=== PATIENT | male | born 1995 | race Caucasian/White ===

== ENCOUNTER 2016-12-19 20:52 | Emergency (ER) | payer OTHER ==
[~2016-12-19] VITALS: Ht 165.1 cm; Wt 70.0 kg
[2016-12-19 21:07] VITALS: BP 153/90; PULSE 107; PULSE 95; RESP 16; RESP 18; TEMP 98.1; O2SAT 100; O2SAT 95
[2016-12-19 22:54] LABS: AUTOMATED NEUTROPHIL # 4.5 TH/MM3 (1.8-7.7); BASOPHIL % 0.7 % (0.0-2.0); EOSINOPHIL # 0.1 TH/MM3 (0-0.4); EOSINOPHIL % 1.3 % (0.0-4.0); HEMATOCRIT 43.2 % (39.0-51.0); HEMO FLAGS DIFF FINAL; LYMPH % 27.3 % (9.0-44.0); MEAN CELL VOLUME 92.2 FL (80.0-100.0); MEAN CORPUSCULAR HEMOGLOBIN 31.4 PG (27.0-34.0); MEAN CORPUSCULAR HGB CONC 34.1 % (32.0-36.0); MONO % 8.6 % (0.0-8.0); NEUT % 62.1 % (16.0-70.0); PLATELET COUNT 232 TH/MM3 (150-450); RED BLOOD COUNT 4.69 MIL/MM3 (4.50-5.90); RED CELL DISTRIBUTION WIDTH 12.4 % (11.6-17.2); WHITE BLOOD COUNT 7.2 TH/MM3 (4.0-11.0)
[2016-12-19 23:19] LABS: ANION GAP 9 MEQ/L (5-15); AST (GOT) 13 U/L (15-37); BICARBONATE 26.7 MEQ/L (21.0-32.0); BLOOD UREA NITROGEN 14 MG/DL (7-18); CHLORIDE 102 MEQ/L (98-107); GLOMERULAR FILTRATION RATE 85 ML/MIN (>89); POTASSIUM 3.8 MEQ/L (3.5-5.1); SODIUM (NA) 138 MEQ/L (136-145)
[2016-12-19 23:25] LABS: ALKALINE PHOSPHATASE 69 U/L (45-117); ALT (GPT) 16 U/L (12-78); TOTAL BILIRUBIN ADULT 0.3 MG/DL (0.2-1.0)
[2016-12-19 23:26] LABS: ACETAMINOPHEN LESS THAN 2.0 MCG/ML (10.0-30.0); ALCOHOL LESS THAN 3 MG/DL (0-5)
--- NOTE | 2016-12-19 23:34 | PD ---
HPI Chief Complaint: Psychiatric Symptoms Time Seen by Provider: 21:12 Travel History International Travel<30 days: No Contact w/Intl Traveler<30days: No Traveled to known affect area: No History of Present Illness HPI Patient is a 21 year old male who comes in because he says he is feeling suicidal. He says he has been depressed for 3 years, but it is getting much worse and he just can't take it anymore. He says he did attempt to hurt himself when he was younger, but has not done anything to hurt himself tonight. He denies any medical complaints at this time. PFSH Past Medical History Bipolar Disorder: Yes Anxiety: Yes Depression: Yes Tetanus Vaccination: < 5 Years Influenza Vaccination: No Past Surgical History Surgical History: No Previous Surgery Social History Alcohol Use: Yes Tobacco Use: No Substance Use: Yes (WEED) Allergies-Medications (Allergen,Severity, Reaction): Coded Allergies: No Known Allergies (Verified Allergy, Unknown, 12/19/16) Reported Meds & Prescriptions Reported Meds & Active Scripts Active No Active Prescriptions or Reported Medications Review of Systems Except as stated in HPI: all other systems reviewed are Neg General / Constitutional: No: Fever, Chills HENT: No: Headaches, Lightheadedness Cardiovascular: No: Chest Pain or Discomfort Respiratory: No: Shortness of Breath Gastrointestinal: No: Nausea, Vomiting, Abdominal Pain Skin: No Rash, No Change in Pigmentation Neurologic: No: Weakness, Dizziness Psychiatric: Positive: Depression, Suicidal Ideations Physical Exam Narrative GENERAL: Awake and alert, in no acute distress. SKIN: Focused skin assessment warm/dry. HEAD: Atraumatic. Normocephalic. EYES: Pupils equal and round. No scleral icterus. ENT: Mucous membranes pink and moist. NECK: Trachea midline. No JVD. CARDIOVASCULAR: Regular rate and rhythm. No murmur appreciated. RESPIRATORY: No accessory muscle use. Clear to auscultation. Breath sounds equal bilaterally. GASTROINTESTINAL: Abdomen soft, non-tender, nondistended. MUSCULOSKELETAL: No obvious deformities. No clubbing. No cyanosis. No edema. NEUROLOGICAL: Awake and alert. No obvious cranial nerve deficits. Motor grossly within normal limits. Normal speech. PSYCHIATRIC: Appropriate mood and affect; insight and judgment normal. Data Data Last Documented VS Vital Signs Date Time Temp Pulse Resp B/P (MAP) Pulse Ox O2 Delivery O2 Flow Rate FiO2 12/19/16 21:13 18 12/19/16 21:07 107 153/90 (111) 95 Room Air 12/19/16 21:07 98.1 Orders Orders Complete Blood Count With Diff (12/19/16 21:25) Comprehensive Metabolic Panel (12/19/16 21:25) Psych Screen (12/19/16 21:25) Drug Screen, Random Urine (12/19/16:25) Alcohol (Ethanol) (12/19/16 21:25) Salicylates (Aspirin) (12/19/16 21:25) Tylenol (Acetaminophen) (12/19/16 21:25) Labs Laboratory Tests Test 12/19/16 22:01 White Blood Count 7.2 TH/MM3 Red Blood Count 4.69 MIL/MM3 Hemoglobin 14.7 GM/DL Hematocrit 43.2 % Mean Corpuscular Volume 92.2 FL Mean Corpuscular Hemoglobin 31.4 PG Mean Corpuscular Hemoglobin Concent 34.1 % Red Cell Distribution Width 12.4 % Platelet Count 232 TH/MM3 Mean Platelet Volume 8.9 FL Neutrophils (%) (Auto) 62.1 % Lymphocytes (%) (Auto) 27.3 % Monocytes (%) (Auto) 8.6 % Eosinophils (%) (Auto) 1.3 % Basophils (%) (Auto) 0.7 % Neutrophils # (Auto) 4.5 TH/MM3 Lymphocytes # (Auto) 2.0 TH/MM3 Monocytes # (Auto) 0.6 TH/MM3 Eosinophils # (Auto) 0.1 TH/MM3 Basophils # (Auto) 0.0 TH/MM3 CBC Comment DIFF FINAL Differential Comment Blood Urea Nitrogen 14 MG/DL Creatinine 1.09 MG/DL Random Glucose 102 MG/DL Total Protein 7.6 GM/DL Albumin 4.2 GM/DL Calcium Level 8.8 MG/DL Alkaline Phosphatase 69 U/L Aspartate Amino Transf (AST/SGOT) 13 U/L Alanine Aminotransferase (ALT/SGPT) 16 U/L Total Bilirubin 0.3 MG/DL Sodium Level 138 MEQ/L Potassium Level 3.8 MEQ/L Chloride Level 102 MEQ/L Carbon Dioxide Level 26.7 MEQ/L Anion Gap 9 MEQ/L Estimat Glomerular Filtration Rate 85 ML/MIN Salicylates Level 2.8 MG/DL Acetaminophen Level LESS THAN 2.0 MCG/ML Ethyl Alcohol Level LESS THAN 3 MG/DL MDM Medical Decision Making Medical Screen Exam Complete: Yes Emergency Medical Condition: Yes Differential Diagnosis psychosis vs depression vs suicidal ideation vs intoxication Narrative Course Patient is a 21-year-old male who comes in because he is feeling suicidal. He has no medical complaints at this time. Exam shows no acute abnormalities. Labs sent show no acute abnormalities. Patient will be medically cleared for psychiatric evaluation. He is under Skelton act from [facility]. Diagnosis Primary Impression: Medical clearance for psychiatric admission Scripts No Active Prescriptions or Reported Meds Condition: Maddison Martinez MD Dec 19, 2016 23:34
[2016-12-20 01:20] VITALS: BP 113/55; PULSE 52; RESP 18; TEMP 98.1; O2SAT 97
[2016-12-20 07:25] VITALS: BP 125/60; PULSE 79; RESP 17; TEMP 97.9; O2SAT 98
[2016-12-20 09:10] VITALS: BP 125/70; PULSE 67; RESP 16; O2SAT 98
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
[2016-12-20 18:21] VITALS: BP 118/72; PULSE 74; RESP 18; O2SAT 99
[2016-12-20 22:02] VITALS: BP 115/64; PULSE 73; RESP 18; O2SAT 98
[2016-12-21 02:12] VITALS: BP 106/58; PULSE 69; RESP 18; O2SAT 99
[2016-12-21 06:12] VITALS: BP 112/59; PULSE 53; RESP 17; O2SAT 96
[2016-12-21 15:01] VITALS: BP 143/69; PULSE 64; RESP 18; O2SAT 99
[2016-12-21 15:40] VITALS: BP 143/69
== END 2016-12-21 16:00 ==
LOC: NEPD 20:52 → NEPJ 12-21 16:00
DX: F43.20 Adjustment disorder, unspecified (principal); R44.3 Hallucinations, unspecified; F31.9 Bipolar disorder, unspecified; F41.9 Anxiety disorder, unspecified
CPT/HCPCS: 80053; 80307; 85025; 99285

== ENCOUNTER 2016-12-30 16:51 | Emergency (ER) | payer SELFPAY ==
[~2016-12-30] VITALS: Ht 167.6 cm; Wt 68.0 kg
[2016-12-30] MEDS ORDERED: FLUO-1 PO (18:01)
[2016-12-30] MEDS ORDERED: SODIUM CHLOR 0.9% 1000 ML INJ 1,000 ML IV SCH (18:01)
[2016-12-30] MEDS ORDERED: VIST25CA PO (18:01)
[2016-12-30] MEDS ORDERED: TRAM50TA PO (18:01)
[2016-12-30 18:08] VITALS: O2SAT 98
[2016-12-30] MEDS ORDERED: SODIUM CHLORIDE 0.9% FLUSH 10 ML FLUSH IV FLUSH PRN (18:15)
[2016-12-30] MEDS ORDERED: LIDOCAINE VISCOUS 2% SOLN 15 ML UDC PO ONE (18:15)
[2016-12-30] MEDS ORDERED: ONDANSETRON HCL 4 MG/2 ML VIAL IVP ONE (18:15)
[2016-12-30] MEDS ORDERED: FAMOTIDINE 20 MG/2 ML VIAL IV PUSH ONE (18:15)
[2016-12-30] MEDS ORDERED: ALUMINUM/MAGNESIUM/SIMETH 30 ML CUP PO ONE (18:15)
[2016-12-30 18:22] VITALS: BP 135/70; PULSE 72; RESP 18; O2SAT 99
--- NOTE | 2016-12-30 18:32 | PD ---
HPI Chief Complaint: Abdominal Pain Time Seen by Provider: 17:55 Travel History International Travel<30 days: No Contact w/Intl Traveler<30days: No Traveled to known affect area: No History of Present Illness HPI Patient is a 21 year old male who comes in complaining of epigastric abdominal pain. He says that he has had the pain for a few months, but it got worse last night. He admits to one episode of vomiting. He says he did have some alcohol last night. He denies radiation of the pain. He says that the sharp pain that comes on for 15 seconds at a time. He says he is moving his bowels normally. He does not think pain is related to food. He denies fever or chills. He has not taken anything for the pain. PFSH Past Medical History Bipolar Disorder: Yes Anxiety: Yes Depression: Yes Tetanus Vaccination: Unknown Past Surgical History Surgical History: No Previous Surgery Social History Alcohol Use: Yes (RARELY) Tobacco Use: Yes (1/2 PPD) Substance Use: Yes (BENZOS,MDMA) Allergies-Medications (Allergen,Severity, Reaction): Coded Allergies: No Known Allergies (Verified Allergy, Unknown, 12/30/16) Reported Meds & Prescriptions Reported Meds & Active Scripts Active Reported Vistaril (Hydroxyzine Pamoate) 25 Mg Cap 25 Mg PO TID PRN Tramadol (Tramadol HCl) 50 Mg Tab 100 Mg PO Q6H PRN Prozac (Fluoxetine HCl) 10 Mg Cap 10 Mg PO DAILY Review of Systems Except as stated in HPI: all other systems reviewed are Neg General / Constitutional: No: Fever, Chills HENT: No: Headaches, Lightheadedness Cardiovascular: No: Chest Pain or Discomfort Respiratory: No: Shortness of Breath Gastrointestinal: Positive: Vomiting, Abdominal Pain, No: Diarrhea Genitourinary: No: Dysuria Musculoskeletal: No: Edema, Pain Skin: No Rash, No Change in Pigmentation Neurologic: No: Weakness, Dizziness Physical Exam Narrative GENERAL: Awake and alert, in no acute distress. SKIN: Focused skin assessment warm/dry. HEAD: Atraumatic. Normocephalic. EYES: Pupils equal and round. No scleral icterus. ENT: Mucous membranes pink and moist. NECK: Trachea midline. No JVD. CARDIOVASCULAR: Regular rate and rhythm. No murmur appreciated. RESPIRATORY: No accessory muscle use. Clear to auscultation. Breath sounds equal bilaterally. GASTROINTESTINAL: Abdomen soft, nondistended. Mild tenderness to palpation of the right upper quadrant. No rebound or guarding. MUSCULOSKELETAL: No obvious deformities. No clubbing. No cyanosis. No edema. NEUROLOGICAL: Awake and alert. No obvious cranial nerve deficits. Motor grossly within normal limits. Normal speech. PSYCHIATRIC: Appropriate mood and affect; insight and judgment normal. Data Data Last Documented VS Vital Signs Date Time Temp Pulse Resp B/P (MAP) Pulse Ox O2 Delivery O2 Flow Rate FiO2 12/30/16 18:22 72 18 135/70 (91) 99 Room Air Orders Orders Basic Metabolic Panel (Bmp) (12/30/16 18:) Complete Blood Count With Diff (12/30/16:) Lipase (12/30/16:) Iv Access Insert/Monitor (12/30/16 18:) Ecg Monitoring (12/30/16 18:) Oximetry (12/30/16 18:) Ondansetron Inj (Zofran Inj) (12/30/16 18:) Sodium Chlor 0.9% 1000 Ml Inj (Ns 1000 M (12/30/16 18:) Sodium Chloride 0.9% Flush (Ns Flush) (12/30/16 18:) Famotidine Inj (Pepcid Inj) (12/30/16 18:15) Al-Mag Hy-Si 40-40-4 Mg/Ml Liq (Mag-Al P (12/30/16 18:15) Lidocaine 2% Viscous (Xylocaine 2% Visco (12/30/16 18:) Hepatic Functional Panel (12/30/16 18:) MDM Medical Decision Making Medical Screen Exam Complete: Yes Emergency Medical Condition: Yes Medical Record Reviewed: Yes Differential Diagnosis Gastritis versus cholecystitis versus cholelithiasis versus GERD versus pancreatitis Narrative Course Patient is a 21-year-old male who comes in complaining of abdominal pain. Exam shows minimal right-sided abdominal tenderness. IV established, labs sent. Given famotidine, lidocaine, Maalox. Given IV fluids and Zofran. Patient signed out to Dr. Wang to follow-up labs and disposition the patient. Maddison Pickett MD Dec 30, 2016 18:32
[2016-12-30 19:28] VITALS: BP 131/70; PULSE 77; RESP 18; O2SAT 100
[2016-12-30 19:35] LABS: BICARBONATE 23.3 MEQ/L (21.0-32.0); POTASSIUM 3.6 MEQ/L (3.5-5.1)
[2016-12-30 19:39] LABS: INDIRECT BILIRUBIN 0.5 MG/DL (0.0-0.8); TOTAL BILIRUBIN ADULT 0.6 MG/DL (0.2-1.0)
[2016-12-30 20:30] LABS: AUTOMATED NEUTROPHIL # 3.8 TH/MM3 (1.8-7.7); BASOPHIL % 0.3 % (0.0-2.0); EOSINOPHIL % 0.4 % (0.0-4.0); HEMATOCRIT 38.7 % (39.0-51.0); HEMO FLAGS DIFF FINAL; LYMPH % 34.5 % (9.0-44.0); LYMPHOCYTE # 2.3 TH/MM3 (1.0-4.8); MEAN CELL VOLUME 91.5 FL (80.0-100.0); MEAN CORPUSCULAR HGB CONC 33.9 % (32.0-36.0); MONO % 7.6 % (0.0-8.0); NEUT % 57.2 % (16.0-70.0); PLATELET COUNT 220 TH/MM3 (150-450); RED BLOOD COUNT 4.23 MIL/MM3 (4.50-5.90); RED CELL DISTRIBUTION WIDTH 12.5 % (11.6-17.2); WHITE BLOOD COUNT 6.7 TH/MM3 (4.0-11.0)
--- NOTE | 2016-12-30 20:41 | PD ---
Physical Exam Narrative GENERAL: Well-nourished, well-developed patient. well appearing SKIN: Warm and dry. HEAD: Normocephalic and atraumatic. EYES: No injection or drainage. ENT: No nasal drainage noted. NECK: Supple, trachea midline. CARDIOVASCULAR: Regular rate and rhythm RESPIRATORY: Breath sounds equal bilaterally. No accessory muscle use. GASTROINTESTINAL: Abdomen soft, mild ttp in epigastric area, nondistended. no rebound EXTREMITIES: No edema. NEUROLOGICAL: Awake and alert. Motor and sensory grossly within normal limits. Normal speech. Data Data Last Documented VS Vital Signs Date Time Temp Pulse Resp B/P (MAP) Pulse Ox O2 Delivery O2 Flow Rate FiO2 12/30/16 19:28 77 18 131/70 (90) 100 Room Air Orders Orders Basic Metabolic Panel (Bmp) (12/30/16 18:) Complete Blood Count With Diff (12/30/16 18:) Lipase (12/30/16 18:) Iv Access Insert/Monitor (12/30/16 18:) Ecg Monitoring (12/30/16 18:) Oximetry (12/30/16 18:) Ondansetron Inj (Zofran Inj) (12/30/16 18:15) Sodium Chlor 0.9% 1000 Ml Inj (Ns 1000 M (12/30/16 18:) Sodium Chloride 0.9% Flush (Ns Flush) (12/30/16 18:15) Famotidine Inj (Pepcid Inj) (12/30/16 18:15) Al-Mag Hy-Si 40-40-4 Mg/Ml Liq (Mag-Al P (12/30/16 18:15) Lidocaine 2% Viscous (Xylocaine 2% Visco (12/30/16 18:15) Hepatic Functional Panel (12/30/16 18:01) Ed Discharge Order (12/30/16 20:38) Labs Laboratory Tests Test 12/30/16 18:12 12/30/16 20:15 Blood Urea Nitrogen 14 MG/DL Creatinine 0.86 MG/DL Random Glucose 75 MG/DL Total Protein 7.3 GM/DL Albumin 4.3 GM/DL Calcium Level 9.3 MG/DL Alkaline Phosphatase 60 U/L Aspartate Amino Transf (AST/SGOT) 21 U/L Alanine Aminotransferase (ALT/SGPT) 19 U/L Total Bilirubin 0.6 MG/DL Direct Bilirubin 0.1 MG/DL Sodium Level 137 MEQ/L Potassium Level 3.6 MEQ/L Chloride Level 102 MEQ/L Carbon Dioxide Level 23.3 MEQ/L Anion Gap 12 MEQ/L Estimat Glomerular Filtration Rate 112 ML/MIN Indirect Bilirubin 0.5 MG/DL Lipase 80 U/L White Blood Count 6.7 TH/MM3 Red Blood Count 4.23 MIL/MM3 Hemoglobin 13.1 GM/DL Hematocrit 38.7 % Mean Corpuscular Volume 91.5 FL Mean Corpuscular Hemoglobin 31.0 PG Mean Corpuscular Hemoglobin Concent 33.9 % Red Cell Distribution Width 12.5 % Platelet Count 220 TH/MM3 Mean Platelet Volume 8.7 FL Neutrophils (%) (Auto) 57.2 % Lymphocytes (%) (Auto) 34.5 % Monocytes (%) (Auto) 7.6 % Eosinophils (%) (Auto) 0.4 % Basophils (%) (Auto) 0.3 % Neutrophils # (Auto) 3.8 TH/MM3 Lymphocytes # (Auto) 2.3 TH/MM3 Monocytes # (Auto) 0.5 TH/MM3 Eosinophils # (Auto) 0.0 TH/MM3 Basophils # (Auto) 0.0 TH/MM3 CBC Comment DIFF FINAL Differential Comment MDM Supervised Visit with DIANA: No Interpretation(s) CBC & BMP Diagram 12/30/16 18:12 Total Protein 7.3, Albumin 4.3, Calcium Level 9.3, Alkaline Phosphatase 60, Aspartate Amino Transf (AST/SGOT) 21, Alanine Aminotransferase (ALT/SGPT) 19, Total Bilirubin 0.6, Direct Bilirubin 0.1 12/30/16 20:15 Narrative Course signed over to me to follow labs and if normal to discharge labs wnl, Patient denies any new complaints and states that they are feeling better. Patient happy with care, all questions answered. Patient knows that follow up is incumbent on them and to return to the emergency room immediately if new or worsening symptoms develop. Patient given strict return precautions, vitals reviewed and are normal, agrees to further workup as an outpatient. Diagnosis Primary Impression: Abdominal pain Qualified Codes: R10.13 - Epigastric pain Patient Instructions: General Instructions Additional Instruction: return as needed, tylenol as needed, set up a primary for follow up this week Med/Other Pt SpecificInfo: No Change to Meds Disposition: 01 DISCHARGE HOME Condition: Stable Dottie Wang MD Dec 30, 2016 20:41
--- NOTE | 2016-12-31 07:59 | EKG ---
Date Performed: 12/30/2016 Time Performed: 20:10:18 PTAGE: 21 years EKG: Sinus rhythm PROBABLE EARLY REPOLARIZATION BORDERLINE ECG NO PREVIOUS TRACING DOCTOR: Gerry Jarrett Interpretating Date/Time 12/31/2016 07:57:36
== END 2016-12-30 21:07 | disposition home or self-care (01) ==
LOC: NEPC 16:51
DX: R10.13 Epigastric pain (principal); F31.9 Bipolar disorder, unspecified; F41.9 Anxiety disorder, unspecified; F17.200 Nicotine dependence, unspecified, uncomplicated; Z79.899 Other long term (current) drug therapy
CPT/HCPCS: 80048; 80076; 83690; 85025; 93005; 96374; 96375; 99284; J2405; J7030

== ENCOUNTER 2016-12-31 07:39 | Inpatient (IN) | payer SELFPAY ==
[~2016-12-31] VITALS: Ht 167.6 cm; Wt 67.3 kg
[~2016-12-31 07:39] MED LIST: FLUO-1 PO; TRAM50TA PO; VIST25CA PO
[2016-12-31 07:50] VITALS: BP 123/68; PULSE 81; RESP 20; TEMP 98.8; O2SAT 98
--- NOTE | 2016-12-31 07:58 | PD ---
HPI Chief Complaint: suicidal under [place] act Time Seen by Provider: 07:52 Travel History International Travel<30 days: No Contact w/Intl Traveler<30days: No Traveled to known affect area: No History of Present Illness HPI This is a 21-year-old male with a history of depression, who presents here with complaints of suicidal ideation. The patient was brought in by the police under a [place] act. According to the police and patient he has tramadol and was given a take all of them and go into the river and drown himself. The patient states that he's been off of his psychiatric medicines which include Vistaril and Prozac for 2 days. He states he has a baseline history of depression. He states he's been suicidal previously. He denies any drugs of abuse at this time or alcohol ingestion in the last 24 hours. The patient has no medical history other than the depression. There are no other complaints at the time of my examination. PFSH Past Medical History Bipolar Disorder: Yes Anxiety: Yes Depression: Yes Social History Alcohol Use: Yes (RARELY) Tobacco Use: Yes (1/2 PPD) Substance Use: Yes (BENZOS,MDMA) Allergies-Medications (Allergen,Severity, Reaction): Coded Allergies: No Known Allergies (Verified Allergy, Unknown, 12/31/16) Reported Meds & Prescriptions Reported Meds & Active Scripts Active Reported Tramadol (Tramadol HCl) 50 Mg Tab 100 Mg PO Q6H PRN Review of Systems Except as stated in HPI: all other systems reviewed are Neg General / Constitutional: No: Fever, Chills HENT: No: Headaches, Neck Pain Cardiovascular: No: Chest Pain or Discomfort, Palpitations Respiratory: No: Cough, Shortness of Breath Gastrointestinal: No: Nausea, Vomiting, Abdominal Pain Musculoskeletal: No: Weakness, Pain Skin: No Rash, No Lesions Neurologic: No: Weakness, Dizziness, Headache Psychiatric: Positive: Depression, Suicidal Ideations, Substance Abuse ( reports occasional marijuana use) Physical Exam Narrative GENERAL: Well-developed well-nourished male in no acute respiratory distress. The patient is cooperative. SKIN: Focused skin assessment warm/dry. HEAD: Atraumatic. Normocephalic. EYES: Pupils equal and round. No scleral icterus. No injection or drainage. ENT: No nasal bleeding or discharge. Mucous membranes pink and moist. NECK: Trachea midline. Supple CARDIOVASCULAR: Regular rate and rhythm. No murmur appreciated. RESPIRATORY: No accessory muscle use. Clear to auscultation. Breath sounds equal bilaterally. GASTROINTESTINAL: Abdomen soft, non-tender, nondistended. Hepatic and splenic margins not palpable. MUSCULOSKELETAL: No obvious deformities. No clubbing. No cyanosis. No edema. NEUROLOGICAL: Awake and alert. No obvious cranial nerve deficits. Motor grossly within normal limits. Normal speech. PSYCHIATRIC: Cooperative with flat affect. Data Data Last Documented VS Vital Signs Date Time Temp Pulse Resp B/P (MAP) Pulse Ox O2 Delivery O2 Flow Rate FiO2 12/31/16 07:50 98.8 81 20 123/68 (86) 98 Orders Orders Complete Blood Count With Diff (12/31/16 07:52) Comprehensive Metabolic Panel (12/31/16 07:52) Psych Screen (12/31/16 07:52) Drug Screen, Random Urine (12/31/16 07:52) Alcohol (Ethanol) (12/31/16 07:52) Salicylates (Aspirin) (12/31/16 07:52) Tylenol (Acetaminophen) (12/31/16 07:52) Admit To Inpatient Psych (12/31/16 ) Vital Signs (Adult) TITA.Q12H.E (12/31/16:17) Activity Oob Ad [place] (12/31/16:17) Lorazepam (Ativan) (12/31/16 09:30) Lorazepam Inj (Ativan Inj) (12/31/16 09:30) Lorazepam (Ativan) (12/31/16 09:30) Lorazepam Inj (Ativan Inj) (12/31/16 09:30) Acetaminophen (Tylenol) (12/31/16 09:30) Magnesium Hydroxide Liq (Milk Of Magnesi (12/31/16 09:30) Al-Mag Hy-Si 40-40-4 Mg/Ml Liq (Mag-Al P (12/31/16 09:30) Nicotine 21 Mg Patch.24 Hr (Habitrol 21 (12/31/16 09:30) Basic Metabolic Panel (Bmp) (01/01/17 06:00) Lipid Profile (01/01/17 06:00) Hemoglobin (Hgb) A1c (01/01/17 06:00) Alcohol (Ethanol) (12/31/16 09:17) ^ Other Nursing Orders (12/31/16 09:19) Labs Laboratory Tests Test 12/31/16 08:00 White Blood Count 6.3 TH/MM3 Red Blood Count 4.40 MIL/MM3 Hemoglobin 13.7 GM/DL Hematocrit 40.3 % Mean Corpuscular Volume 91.5 FL Mean Corpuscular Hemoglobin 31.2 PG Mean Corpuscular Hemoglobin Concent 34.1 % Red Cell Distribution Width 12.4 % Platelet Count 245 TH/MM3 Mean Platelet Volume 8.8 FL Neutrophils (%) (Auto) 56.7 % Lymphocytes (%) (Auto) 31.8 % Monocytes (%) (Auto) 9.9 % Eosinophils (%) (Auto) 0.7 % Basophils (%) (Auto) 0.9 % Neutrophils # (Auto) 3.6 TH/MM3 Lymphocytes # (Auto) 2.0 TH/MM3 Monocytes # (Auto) 0.6 TH/MM3 Eosinophils # (Auto) 0.0 TH/MM3 Basophils # (Auto) 0.1 TH/MM3 CBC Comment DIFF FINAL Differential Comment Blood Urea Nitrogen 16 MG/DL Creatinine 0.95 MG/DL Random Glucose 105 MG/DL Total Protein 7.1 GM/DL Albumin 4.1 GM/DL Calcium Level 8.8 MG/DL Alkaline Phosphatase 58 U/L Aspartate Amino Transf (AST/SGOT) 19 U/L Alanine Aminotransferase (ALT/SGPT) 20 U/L Total Bilirubin 0.2 MG/DL Sodium Level 138 MEQ/L Potassium Level 4.0 MEQ/L Chloride Level 107 MEQ/L Carbon Dioxide Level 24.9 MEQ/L Anion Gap 6 MEQ/L Estimat Glomerular Filtration Rate 100 ML/MIN Salicylates Level LESS THAN 1.7 MG/DL Acetaminophen Level LESS THAN 2.0 MCG/ML Ethyl Alcohol Level LESS THAN 3 MG/DL MDM Medical Decision Making Medical Screen Exam Complete: Yes Emergency Medical Condition: Yes Differential Diagnosis Acute exacerbation of depression. Versus substance induced mood disorder versus medication noncompliance Narrative Course 21-year-old male who is brought under [place] act. The patient has a history depression. He's been off his depression medicines for 2 days. He states that he wanted to take an overdose of tramadol and jump in the river to ground. Police report finding him 10 feet from the river. The patient denies any ingestion of tramadol today. He states he's had previous suicidal ideations. He is medically clear for psychiatric admission. Diagnosis Primary Impression: Depression Additional Impressions: Suicidal ideation medically clear Tigre Woo MD Dec 31, 2016 07:57
[2016-12-31 08:26] LABS: AUTOMATED NEUTROPHIL # 3.6 TH/MM3 (1.8-7.7); BASOPHIL # 0.1 TH/MM3 (0-0.2); BASOPHIL % 0.9 % (0.0-2.0); EOSINOPHIL % 0.7 % (0.0-4.0); HEMATOCRIT 40.3 % (39.0-51.0); HEMO FLAGS DIFF FINAL; LYMPH % 31.8 % (9.0-44.0); MEAN CELL VOLUME 91.5 FL (80.0-100.0); MEAN CORPUSCULAR HEMOGLOBIN 31.2 PG (27.0-34.0); MEAN CORPUSCULAR HGB CONC 34.1 % (32.0-36.0); MONO % 9.9 % (0.0-8.0); NEUT % 56.7 % (16.0-70.0); PLATELET COUNT 245 TH/MM3 (150-450); RED CELL DISTRIBUTION WIDTH 12.4 % (11.6-17.2); WHITE BLOOD COUNT 6.3 TH/MM3 (4.0-11.0)
[2016-12-31 08:42] LABS: ANION GAP 6 MEQ/L (5-15); AST (GOT) 19 U/L (15-37); BICARBONATE 24.9 MEQ/L (21.0-32.0); BLOOD UREA NITROGEN 16 MG/DL (7-18); CHLORIDE 107 MEQ/L (98-107); GLOMERULAR FILTRATION RATE 100 ML/MIN (>89); SODIUM (NA) 138 MEQ/L (136-145)
[2016-12-31 08:44] LABS: ACETAMINOPHEN LESS THAN 2.0 MCG/ML (10.0-30.0); ALT (GPT) 20 U/L (12-78)
[2016-12-31 08:45] LABS: ALKALINE PHOSPHATASE 58 U/L (45-117); TOTAL BILIRUBIN ADULT 0.2 MG/DL (0.2-1.0)
[2016-12-31 08:50] LABS: ALCOHOL LESS THAN 3 MG/DL (0-5)
[2016-12-31] MEDS ORDERED: NICOTINE 21 MG/24 HR PATCH T-DERMAL SCH (09:30)
[2016-12-31] MEDS ORDERED: LORazepam 2 MG/ML VIAL IM PRN ×2 (09:30)
[2016-12-31] MEDS ORDERED: LORazepam 0.5 MG TAB PO PRN (09:30)
[2016-12-31] MEDS ORDERED: LORazepam 1 MG TAB PO PRN (09:30)
[2016-12-31] MEDS ORDERED: ALUMINUM/MAGNESIUM/SIMETH 30 ML CUP PO PRN (09:30)
[2016-12-31] MEDS ORDERED: MAGNESIUM HYDROXIDE SUSP 30 ML CUP PO PRN (09:30)
[2016-12-31] MEDS ORDERED: ACETAMINOPHEN 325 MG TAB PO PRN (09:30)
[2016-12-31 10:35] VITALS: BP 136/75; PULSE 65; RESP 18; TEMP 98; O2SAT 99
--- NOTE | 2016-12-31 14:41 | HHI.HP ---
Provisional Diagnosis Admission Date Dec 31, 2016 at 09:20 [place] I. Major depressive disorder, recurrent, severe, without psychosis [place] II. Unspecified personality disorder [place] III. No significant medical history Certification of Person's Competence To Provide Express and Informed Consent I have personally examined Ranjan Chopra , a person being served at [facility] on, Dec 31, 2016 14:25. Express and informed consent means consent voluntarily given in writing, by a competent person, after sufficient explanation and disclosure of the subject matter involved to enable the person to make a knowing and willful decision without any element of force, fraud, deceit, duress, or other form of constraint or coercion. This person is 18 years of age or older, is not now known to be incompetent to consent to treatment with a guardian advocate, and does not have a health care surrogate or proxy currently making medical treatment decisions. I have found this person to be one of the following: [X] Competent to provide express and informed consent, as defined above, for voluntary admission to this facility and is competent to provide express and informed consent for treatment. He/she has the consistent capacity to make well reasoned, willful, and knowing decisions concerning his or her medical or mental health treatment. The person fully and consistently understands the purpose of the admission for examination/placement and is fully capable of personally exercising all rights assured [place] Incompetent to provide express and informed consent to voluntary admission, and this is incompetent to provide express and informed consent to treatment. The person must be transferred to involuntary status and a petition for a guardian advocate filed with the Circuit Court. [] Refusing to provide express and informed consent to voluntary admission but is competent to provide express and informed consent for treatment. The person must be discharged or transferred to involuntary status. Form shall be completed within 24 hours of a person's arrival at the receiving facility and filed in the clinical record of each person: 1. Admitted on a voluntary basis 2. Permitted to provide express and informed consent to his/her own treatment 3. Allowed to transfer from involuntary to voluntary status 4. Prior to permitting a person to consent to his or her own treatment after having been previously found incompetent to consent to treatment. History of Present Illness Capacity: Has Capacity HPI The patient is a 21-year-old man, who lives in [place], he says that he is in [place] on medication, single, employed, with psychiatric history of depression, 2 previous psychiatric hospitalizations, previous suicidal attempts by overdoses, patient was seeing by Miss Knight about 2 weeks ago in the ER, he was cleared, documentation reviewed, he doesn't have any significant medical history, who presents here with complaints of suicidal ideation. The patient was brought in by the police under a [place] act. According to the police and patient he has tramadol and was given a take all of them and go into the river and drown himself. The patient states that he's been off of his psychiatric medicines which include Vistaril and Prozac for 2 days. On psychiatric evaluation patient is found in his cubicle in the ER. Patient reports that his been increasingly depressed in the last weeks. Patient says that he has been 2 weeks on vacation, he has been without his medications, and he has been struggling with depression. Last week the partner he was with medication left [facility] after an argument and since then patient has been here everyday worse. He was kicked out of his hotel today. He felt hopeless, helpless, very depressed, and walked to a bridge with intention to jump off or overdosing with his medications. At this moment the patient reports suicidal ideation, no specific plan. Denies homicidal ideation, he denies visual and auditory hallucinations. Patient is oriented 3, no attention deficit, fluctuation of consciousness, no delusions, no paranoia, no agitation or aggressive behavior present. Patient reports daily use of cannabis , denies the use of alcohol and other illicit drugs. Review of Systems Constitutional: DENIES: Diaphoretic episodes, Fatigue, Fever, Weight gain, Weight loss, Chills, Dizziness, Change in appetite, Night Sweats Endocrine: DENIES: Heat/cold intolerance, Polydipsia, Polyuria, Polyphagia Eyes: DENIES: Blurred vision, Diplopia, Eye inflammation, Eye pain, Vision loss , Photosensitivity, Double Vision Ears, nose, mouth, throat: DENIES: Tinnitus, Hearing loss, Vertigo, Nasal discharge, Oral lesions, Throat pain, Hoarseness, Ear Pain, Running Nose, Epistaxis, Sinus Pain, Toothache, Odynophagia Respiratory: DENIES: Apneas, Cough, Snoring, Wheezing, Hemoptysis, Sputum production, Shortness of breath Cardiovascular: DENIES: Chest pain, Palpitations, Syncope, Dyspnea on Exertion , PND, Lower Extremity Edema, Orthopnea, Claudication Gastrointestinal: DENIES: Abdominal pain, Black stools, Bloody stools, Constipation, Diarrhea, Nausea, Vomiting, Difficulty Swallowing, Anorexia Genitourinary: DENIES: Sexual dysfunction, Urinary frequency, Urinary incontinence, Urgency, Hematuria, Dysuria, Nocturia, Penile Discharge, Testicular Pain, Testicular Swelling Musculoskeletal: DENIES: Joint pain, Muscle aches, Stiffness, Joint Swelling, Back pain, Neck pain Integumentary: DENIES: Abnormal pigmentation, Nail changes, Pruritus, Rash Hematologic/lymphatic: DENIES: Bruising, Lymphadenopathy Immunologic/allergic: DENIES: Eczema, Urticaria Neurologic: DENIES: Abnormal gait, Headache, Localized weakness, Paresthesias, Seizures, Speech Problems, Tremor, Poor Balance Psychiatric: COMPLAINS OF: Depression, Suicidal Ideation, DENIES: Anxiety, Confusion, Mood changes, Hallucinations, Agitation, Homicidal Ideation, Delusions Substance Abuse History Drugs/Alcohol past 12 months Reports daily use of cannabis Past Family Social History Coded Allergies: No Known Allergies (Verified Allergy, Unknown, 12/31/16) Reported Medications Tramadol (Tramadol) 50 Mg Tab, 100 MG PO Q6H Y for PAIN, TAB 0 Refills 12/30/16 Discontinued Reported Medications Hydroxyzine Pamoate (Vistaril) 25 Mg Cap, 25 MG PO TID Y for ANXIETY, CAP 0 Refills 12/30/16 Fluoxetine (Prozac) 10 Mg Cap, 10 MG PO DAILY, #30 CAP 0 Refills 12/30/16 Current Medications Medications (Trade) Dose Ordered Sig/Dawit Route Start Time Stop Time Status Last Admin (Ativan) 1 mg Q6H PRN PO 12/31/16 09:30 (Ativan Inj) 1 mg Q6H PRN IM 12/31/16 09:30 (Tylenol) 650 mg Q4H PRN PO 12/31/16 09:30 (Milk Of Magnesia Liq) 30 ml DAILY PRN PO 12/31/16 09:30 (Mag-Al Plus Susp Liq) 30 ml Q6H PRN PO 12/31/16 09:30 (Habitrol 21 Mg Patch.24 Hr) 1 patch DAILY T-DERMAL 12/31/16 09:30 Miscellaneous Information 1 HS T-DERMAL 12/31/16 21:00 Family Psych History His mother has schizophrenia, his father has depression Social History Patient was born and raised in [place], he lives in [place], he single, he is employed, highest level of education is 2 years college Patient's Strengths (min. 2) Verbal communication Physical Exam No psychomotor agitation or retardation, no EPS, no withdrawal, no tremors, no stiffness, no gait disturbance Vital Signs Vital Signs Date Time Temp Pulse Resp B/P (MAP) Pulse Ox O2 Delivery O2 Flow Rate FiO2 12/31/16 10:35 98.0 65 18 136/75 (95) 99 Lab Results Test 12/31/16 08:00 12/31/16 09:25 12/31/16 10:06 White Blood Count 6.3 TH/MM3 Red Blood Count 4.40 MIL/MM3 Hemoglobin 13.7 GM/DL Hematocrit 40.3 % Mean Corpuscular Volume 91.5 FL Mean Corpuscular Hemoglobin 31.2 PG Mean Corpuscular Hemoglobin Concent 34.1 % Red Cell Distribution Width 12.4 % Platelet Count 245 TH/MM3 Mean Platelet Volume 8.8 FL Neutrophils (%) (Auto) 56.7 % Lymphocytes (%) (Auto) 31.8 % Monocytes (%) (Auto) 9.9 % Eosinophils (%) (Auto) 0.7 % Basophils (%) (Auto) 0.9 % Neutrophils # (Auto) 3.6 TH/MM3 Lymphocytes # (Auto) 2.0 TH/MM3 Monocytes # (Auto) 0.6 TH/MM3 Eosinophils # (Auto) 0.0 TH/MM3 Basophils # (Auto) 0.1 TH/MM3 CBC Comment DIFF FINAL Differential Comment Blood Urea Nitrogen 16 MG/DL Creatinine 0.95 MG/DL Random Glucose 105 MG/DL Total Protein 7.1 GM/DL Albumin 4.1 GM/DL Calcium Level 8.8 MG/DL Alkaline Phosphatase 58 U/L Aspartate Amino Transf (AST/SGOT) 19 U/L Alanine Aminotransferase (ALT/SGPT) 20 U/L Total Bilirubin 0.2 MG/DL Sodium Level 138 MEQ/L Potassium Level 4.0 MEQ/L Chloride Level 107 MEQ/L Carbon Dioxide Level 24.9 MEQ/L Anion Gap 6 MEQ/L Estimat Glomerular Filtration Rate 100 ML/MIN Salicylates Level LESS THAN 1.7 MG/DL Acetaminophen Level LESS THAN 2.0 MCG/ML Ethyl Alcohol Level LESS THAN 3 MG/DL LESS THAN 3 MG/DL Urine Opiates Screen NEG Urine Barbiturates Screen NEG Urine Amphetamines Screen NEG Urine Benzodiazepines Screen NEG Urine Cocaine Screen NEG Urine Cannabinoids Screen POS Mental Status Examination Appearance: Appropriate Consciousness: Alert Orientation: x4 Motor Activity: Normal gait Speech: Unremarkable Language: Adequate Fund of Knowledge: Adequate Attention and Concentration: Adequate Memory: Unremarkable Mood: Sad Affect: Sad Thought Process & Associations: Intact Thought Content: Appropriate Hallucination Type: None Delusion Type: None Suicidal Ideation: Yes Suicidal Plan: No Suicidal Intention: No Homicidal Ideation: No Homicidal Plan: No Homicidal Intention: No Insight: Adequate Judgment: Adequate Assessment & Plan Problem List: (1) Depression ICD Codes: F32.9 - Major depressive disorder, single episode, unspecified Status: Acute Assessment & Plan: On psychiatric evaluation today the patient presents with reported 3 weeks of ongoing depressive symptoms consisting of lack of motivation , no enjoying usual activities, hopelessness, helplessness, daily sadness, poor sleep at night, poor appetite, and recurrent suicidal thoughts with the plan of overdosing or jumping off a bridge. She reports history of depression, previous psychiatric hospitalization and suicide attempts. Patient has been in the ER 3 times in the last. His history of being on vacation, having a friend who left him alone in [place] seems to be completely incongruent and convoluted. I'm going to admit patient in psychiatry due to his recurrent visits to the ER with suicidal ideation/attempts, lack of collateral information and because the patient can potentially represents a danger to himself. I will start Paxil 20 mg for depression. Would monitor closely behavior and mood. garage worker intervention for psychosocial assessment, collateral information, individual and group therapy and to coordinating a safe discharge. However, I have the suspicion that malicious simulation with secondary gain of using the hospital as a group home and also an underlying personality pathology has to be careful rule out. Supportive psychotherapy and psychoeducation provided. Transfer to psychiatry Assessment & Plan Estimated LOS: days Problem Qualifiers (1) Depression: Darron Santiago MD Dec 31, 2016 14:41
[2016-12-31] MEDS: REMOVE OLD NICODERM (NICOTINE) PATCH T-DERMAL SCH (21:00)
[2016-12-31] MEDS: buPROPion HCL 75 MG TAB PO SCH (21:23)
[2017-01-01 05:48] VITALS: BP 117/58; PULSE 78; RESP 15; TEMP 97.7; O2SAT 100
[2017-01-01] MEDS: buPROPion HCL 75 MG TAB PO SCH ×2 (09:29→21:06)
--- NOTE | 2017-01-01 13:35 | HHI.PYPN ---
Subjective Remarks Patient was seen and case discussed with nursing. Patient is friendly and cooperative with exam. He social on the unit and is made a friend. Affect is bright. Patient remains depressed but denies suicidal homicidal ideation intent or plan. He is tolerating his medication well. Patient says that before getting off Prozac it was working well for him. Asking for anxiety medication. Mental Status Examination Appearance: Appropriate Consciousness: Alert Orientation: x4 Motor Activity: Normal gait Speech: Unremarkable Language: Adequate Fund of Knowledge: Adequate Attention and Concentration: Adequate Memory: Unremarkable Mood: Sad Affect: Sad Thought Process & Associations: Intact Thought Content: Appropriate Hallucination Type: None Delusion Type: None Suicidal Ideation: No Suicidal Plan: No Suicidal Intention: No Homicidal Ideation: No Homicidal Plan: No Homicidal Intention: No Insight: Adequate Judgment: Adequate Results Vitals/IOs Vital Signs Date Time Temp Pulse Resp B/P (MAP) Pulse Ox O2 Delivery O2 Flow Rate FiO2 01/01/17 05:48 97.7 78 15 117/58 (77) 100 Assessment & Plan Problem List: (1) Depression ICD Codes: F32.9 - Major depressive disorder, single episode, unspecified Status: Acute Assessment & Plan Add Prozac 20 mg to Wellbutrin. Vistaril when necessary for anxiety or insomnia Justification for Cont. Inpt. Patient will decompensate in a less restrictive setting Problem Qualifiers (1) Depression: Mario Cueto DO Jan 01, 2017 13:35
[2017-01-01] MEDS ORDERED: hydrOXYzine HCL 50 MG TAB PO PRN (13:45)
[2017-01-01] MEDS: FLUoxetine HCL 20 MG CAP PO SCH (15:57)
[2017-01-01 17:06] VITALS: BP 143/63; PULSE 81; RESP 18; TEMP 98.2; O2SAT 100
[2017-01-01] MEDS: REMOVE OLD NICODERM (NICOTINE) PATCH T-DERMAL SCH (21:00)
[2017-01-02 06:15] VITALS: BP 112/60; PULSE 65; RESP 16; TEMP 98.2; O2SAT 98
[2017-01-02] MEDS: buPROPion HCL 75 MG TAB PO SCH (08:36)
[2017-01-02] MEDS: FLUoxetine HCL 20 MG CAP PO SCH (08:36)
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
[2017-01-02] MEDS ORDERED: BENZTROPINE MESYLATE 2 MG/2 ML VIAL IM PRN (12:00)
[2017-01-02] MEDS: GABAPENTIN 300 MG CAP PO SCH ×2 (13:00→20:39)
[2017-01-02] MEDS ORDERED: ALUMINUM/MAGNESIUM/SIMETH 30 ML CUP PO PRN (13:00)
[2017-01-02] MEDS ORDERED: ACETAMINOPHEN 325 MG TAB PO PRN (13:00)
[2017-01-02] MEDS ORDERED: BENZTROPINE MESYLATE 1 MG TAB PO PRN (13:00)
[2017-01-02] MEDS ORDERED: MAGNESIUM HYDROXIDE SUSP 30 ML CUP PO PRN (13:00)
[2017-01-02] MEDS: traZODone HCL 100 MG TAB PO SCH (20:38)
[2017-01-03 06:00] VITALS: BP 118/60; PULSE 73; RESP 16; TEMP 98; O2SAT 99
[2017-01-03] MEDS: FLUoxetine HCL 20 MG CAP PO SCH (08:45)
[2017-01-03] MEDS: GABAPENTIN 300 MG CAP PO SCH ×3 (08:45→20:50)
[2017-01-03] MEDS ORDERED: TRAZ50TA12 PO (14:34)
[2017-01-03] MEDS ORDERED: FLUO20CA12 PO (14:34)
[2017-01-03] MEDS ORDERED: NEUR300C PO (14:34)
--- NOTE | 2017-01-03 14:35 | HHI.DS ---
Psychiatry Discharge Summary Inpatient Psychiatric care?: Yes Advance Directive: No Reason Not Provided: Refused Mental Health AdvanceDirective: No Health Care Proxy: No Admission Admission Date Dec 31, 2016 at 09:20 Admission Diagnosis: (1) Depression ICD Code: F32.9 - Major depressive disorder, single episode, unspecified Brief History The patient is a 21-year-old man, who lives in [place], he says that he is in [place] on medication, single, employed, with psychiatric history of depression, 2 previous psychiatric hospitalizations, previous suicidal attempts by overdoses, patient was seeing by [facility] about 2 weeks ago in the ER, he was cleared, documentation reviewed, he doesn't have any significant medical history, who presents here with complaints of suicidal ideation. The patient was brought in by the police under a [place] act. According to the police and patient he has tramadol and was given a take all of them and go into the river and drown himself. The patient states that he's been off of his psychiatric medicines which include Vistaril and Prozac for 2 days. On psychiatric evaluation patient is found in his cubicle in the ER. Patient reports that his been increasingly depressed in the last weeks. Patient says that he has been 2 weeks on vacation, he has been without his medications, and he has been struggling with depression. Last week the partner he was with medication left [facility] after an argument and since then patient has been here everyday worse. He was kicked out of his hotel today. He felt hopeless, helpless, very depressed, and walked to a bridge with intention to jump off or overdosing with his medications. At this moment the patient reports suicidal ideation, no specific plan. Denies homicidal ideation, he denies visual and auditory hallucinations. Patient is oriented 3, no attention deficit, fluctuation of consciousness, no delusions, no paranoia, no agitation or aggressive behavior present. Patient reports daily use of cannabis , denies the use of alcohol and other illicit drugs. Tobacco Use In Past 30 Days: 5 or More Cigarettes/Day Alcohol Use: Monthly or Less Hospital Course Patient was admitted to a locked, inpatient psychiatric unit. Appropriate precautions were in place throughout patient's hospital stay. Patient was seen and examined daily on the unit by psychiatry and also visited by counselor. Psychotropic medications were adjusted. Patient had improvement in presenting psychiatric symptoms during the course of his hospital stay. There was no evidence of any suicidality or homicidality on the inpatient unit. Patient remained in behavioral control and was compliant with medications. financial planner has arranged for patient to enter into chemical dependency treatment program and has arranged for transport to this program in the pre-bonnie hours tomorrow morning. On the day of discharge: Patient seen and examined with nurse. Chart reviewed. Case discussed in treatment team. Per nursing staff, no behavioral issues overnight. On my examination today, the patient feels that entering into chemical dependency treatment program is his best chance for stability. He admits to use of cannabis chiefly prior to admission but says that he has "used a lot of different drugs." He reports that his anxiety and paranoia are significantly decreased. Mood is improved versus admission. He denies any suicidal or homicidal ideation, intent or plan on direct questioning and contracts for safety. He denies any audiovisual hallucinations, and I can elicit no delusional material. He denies any side effects from medications besides some mild tiredness, which is tolerable. He feels like psychotropic medications are helping. No physical complaints. Weighing the acute, chronic, and protective factors and based on the available evidence, I associate to a reasonable degree of medical certainty that the patient is at low imminent risk of harm to self or others from a mental illness as defined under the [place] act and his level of function is adequate for outpatient care. Patient has maximized benefit from this inpatient psychiatric hospital stay and will be discharged tomorrow in the carpet binder to allow for transport to chemical dependency rehabilitation facility. Psychiatric follow-up as arranged by counselor. Patient is also to follow-up with primary care. I have supported the patient in his desire for sobriety. I have counseled the patient regarding warning signs for need to return to the psychiatric emergency room as part of the general safety plan. Results Blood Pressure 118 / 60 Vital Signs Date Time Temp Pulse Resp B/P (MAP) Pulse Ox O2 Delivery O2 Flow Rate FiO2 01/03/17 06:00 98.0 73 16 118/60 (79) 99 Laboratory Tests Test 01/02/17 13:41 Summary of Procedures None done Imaging None done Pending results at discharge: No Medications # of Antipsychotic meds at D/C: 0 Approp Antipsych med options 1 - Minimum of three failed multiple trials of monotherapy. 2 - Documented plan to taper to monotherapy due to previous use of multiple meds OR cross-taper in progress at D/C. 3 - Documentation of augmentation of Clozapine. 4 - Justification other than those listed in allowable values 1-3, document here : Discharge Discharge Date: Jan 03, 2017 Discharge Diagnosis: (1) Depression, major, in partial remission Diagnosis: Principal (improved versus admission) ICD Code: F32.4 - Major depressive disorder, single episode, in partial remission (2) Other mixed anxiety disorders Diagnosis: Secondary (improved versus admission) ICD Code: F41.3 - Other mixed anxiety disorders (3) Cannabis abuse Diagnosis: Secondary ICD Code: F12.10 - Cannabis abuse, uncomplicated Pt Condition on Discharge: Stable Discharge Disposition: Discharge Home Discharge Instructions Diet Instructions: As Tolerated, No Restrictions Activities you can perform: Weight Bearing as Sebas Scheduled Appointment: as per counselor's notes New Medications: Fluoxetine (Fluoxetine) 20 Mg Capsule 20 MG PO DAILY for Mental Health for 15 Days, #15 CAP 1 Refill Gabapentin (Neurontin) 300 Mg Cap 300 MG PO DAILY@0900,1300,2100 for Mental Health for 15 Days, CAP 1 Refill Trazodone (Trazodone) 50 Mg Tab 100 MG PO HS for Insomnia for 15 Days, TAB 1 Refill Discontinued Medications: Tramadol (Tramadol) 50 Mg Tab 100 MG PO Q6H PRN for PAIN, TAB 0 Refills Discharge Time <= 30 minutes Mental Status Examination Appearance: Appropriate Consciousness: Alert Orientation: x4 Motor Activity: Normal gait, Other (no motor abnormalities noted) Speech: Unremarkable Language: Adequate Fund of Knowledge: Adequate Attention and Concentration: Adequate Memory: Unremarkable (grossly intact on clinical exam) Mood: Other (mood improved versus admission. Anxiety lessened.) Affect: Appropriate (full and reactive) Thought Process & Associations: Intact, Logical, Goal directed, Linear Thought Content: Appropriate Hallucination Type: None Delusion Type: None Suicidal Ideation: No Suicidal Plan: No Suicidal Intention: No Homicidal Ideation: No Homicidal Plan: No Homicidal Intention: No Insight: Adequate Judgment: Adequate Discharge/Advance Care Plan Health Problems: (1) Depression (2) Other mixed anxiety disorders (3) Cannabis abuse Goals to promote your health * To prevent worsening of your condition and complications * To maintain your health at the optimal level Directions to meet your goals Take your medications as prescribed Follow your dietary instruction Follow activity as directed Keep your appointments as scheduled Take your immunizations and boosters as scheduled If your symptoms worsen call your PCP, if no PCP go to Urgent Care Center or Emergency Room For 10/10 questions related to your inpatient stay or results of tests pending at discharge, please contact Dr. Yobani Aquino at Smoking is Dangerous to Your Health. Avoid second hand smoking Problem Qualifiers (1) Depression: Qualified Codes: F33.2 - Major depressive disorder, recurrent severe without psychotic features Yobani Aquino MD Jan 03, 2017 14:35
[2017-01-03 18:15] VITALS: BP 123/58; PULSE 78; RESP 16; TEMP 98.4; O2SAT 99
[2017-01-03] MEDS: traZODone HCL 100 MG TAB PO SCH (20:36)
== END 2017-01-04 05:28 | disposition home or self-care (01) | DRG 885 ==
LOC: NEPC 07:39 → NEDA 09:20 → H260 10:35
PROVIDERS: ADMIT Psychiatry & Neurology Psychiatry; ATTEND Psychiatry & Neurology Psychiatry
DX: F33.2 Major depressive disorder, recurrent severe without psychotic features (principal); F22 Delusional disorders; R45.851 Suicidal ideations; F60.9 Personality disorder, unspecified; F41.9 Anxiety disorder, unspecified; F12.10 Cannabis abuse, uncomplicated; G47.00 Insomnia, unspecified; Z62.810 Personal history of physical and sexual abuse in childhood; F17.210 Nicotine dependence, cigarettes, uncomplicated; Z79.899 Other long term (current) drug therapy; Z81.8 Family history of other mental and behavioral disorders
CPT/HCPCS: 80053; 80307; 84443; 85025